=== PATIENT | female | born 1950 | race Caucasian/White ===

== ENCOUNTER → 2017-01-20 | Outpatient (CLI) | payer MEDICARE ==
--- NOTE | 2017-01-20 14:10 | RAD ---
EXAM DESCRIPTION: Knee,Right 2 or More Views CLINICAL HISTORY: 66 years, Female, KNEE PAIN COMPARISON: FINDINGS: No fracture or dislocation. Fairly severe narrowing medially and the patellofemoral joint space with spurring. Slight narrowing laterally. Probable small joint effusion IMPRESSION: Moderately advanced degenerative changes typically medially and patellofemoral joint space. Possible small joint effusion. No fracture or dislocation Electronically signed by: Yoel Null MD 01/20/2017 2:09 PM CDT
--- NOTE | 2017-01-20 14:13 | RAD ---
EXAM DESCRIPTION: Lumbar Spine 5 Views CLINICAL HISTORY: 66 years, Female, LOW BACK PAIN COMPARISON: FINDINGS: Study slightly underpenetrated. Fairly normal vertebral body height. Some minimal compressive changes of the superior endplates of L4 and L5, likely chronic probably due to osteopenia. Mild disc space narrowing particularly L3-4 and L4-5 spurring. No spondylolisthesis. Cholecystectomy noted. Atherosclerotic calcification in the lower abdominal aorta without significant dilatation IMPRESSION: Osteopenic bones and degenerative change. No definite fracture or dislocation Electronically signed by: Yoel Null MD 01/20/2017 2:11 PM CDT
== END | disposition home or self-care (01) ==
LOC: YCFC.O 12:20
DX: M54.5 Low back pain (principal); M25.561 Pain in right knee

== ENCOUNTER → 2017-01-28 | Outpatient (CLI) | payer MEDICARE | LOC: YCFC.O 11:07 | DX: M17.11 Unilateral primary osteoarthritis, right knee (principal) ==

== ENCOUNTER → 2017-02-03 | Outpatient (CLI) | payer MEDICARE | END | disposition home or self-care (01) | LOC: YCFC.O 07:03 | PROVIDERS: ATTEND Nurse Practitioner Family | DX: R73.01 Impaired fasting glucose (principal) ==